=== PATIENT | male | born 1945 | race Caucasian/White ===

== ENCOUNTER 2024-11-22 16:02 | Emergency (ER) | payer MEDICARE, BC ==
[2024-11-22 17:07] LABS: BASOPHILS PERCENT AUTO 0.1 % (0.0-1.0); EOSINOPHILS ABSOLUTE AUTO 0.1 K/mm3 (0.0-0.4); HEMATOCRIT 36.7 % (42.0-52.0); HEMOGLOBIN 12.1 gm/dl (14.0-18.0); IMMATURE GRAN ABSOLUTE AUTO 0.04 K/mm3 (0.00-0.05); IMMATURE GRAN PERCENT AUTO 0.3 % (0.0-0.4); LYMPHOCYTES ABSOLUTE AUTO 0.3 K/mm3 (1.0-4.8); LYMPHOCYTES PERCENT AUTO 2.4 % (24.0-44.0); MEAN CORPUSCULAR HEMOGLOBIN 32.8 pg (28.0-32.0); MEAN CORPUSCULAR VOLUME 99.5 fl (83.0-99.0); MEAN PLATELET VOLUME 8.7 fl (9.4-12.4); MONOCYTES ABSOLUTE AUTO 0.9 K/mm3 (0.0-0.8); MONOCYTES PERCENT AUTO 7.1 % (0.0-8.0); NEUTROPHILS ABSOLUTE AUTO 11.5 K/mm3 (1.8-7.7); NEUTROPHILS PERCENT AUTO 89.1 % (41.0-71.0); PLATELET COUNT,PLT 273 K/mm3 (150-400); RED BLOOD CELL COUNT 3.69 M/mm3 (4.52-5.90); WHITE BLOOD CELL COUNT,WBC 12.94 K/mm3 (3.9-11.3)
[2024-11-22 17:09] LABS: APPEARANCE,URINE SLT CLOUDY (Clear); BILIRUBIN,URINE 1+ (Negative); COLOR,URINE DARK YELLOW (Yellow); GLUCOSE,URINE NEGATIVE (Negative); KETONES,URINE 1+ (Negative); LEUKOCYTE ESTERASE,URINE NEGATIVE (Negative); NITRITE,URINE NEGATIVE (Negative); OCCULT BLOOD,URINE NEGATIVE (Negative); PH,URINE 5.5 (5.0-8.0); PROTEIN,URINE 1+ (Negative); UROBILINOGEN,URINE 0.2 (0.2-1.0)
[2024-11-22 17:28] LABS: A/G RATIO 0.7 (1-2); ALBUMIN 3.2 g/dl (3.4-5.0); ANION GAP 15.6 (5-15); BILIRUBIN TOTAL 0.9 mg/dL (0.2-1.0); BUN/CREATININE RATIO 28.5 (14-18); CALCIUM 8.6 mg/dL (8.5-10.1); CREATININE 1.3 mg/dL (0.7-1.3); EST CRCL DRUG DOSING (CG) 37.85 mL/min; POTASSIUM,K 3.6 mEq/L (3.5-5.1); PROTEIN TOTAL,TP 7.7 g/dl (6.4-8.2)
[2024-11-22 18:01] LABS: BACTERIA,URINE FEW /hpf (FEW); CALCIUM OXALATE CRYSTALS,URINE FEW; MUCUS,URINE FEW /hpf (FEW); RBC,URINE 0-5 /hpf (0-5); SQUAMOUS EPITHELIAL CELLS,UR 0-5 /hpf (0-5); WBC,URINE 0-5 /hpf (0-5)
[2024-11-22] MEDS: Sodium Chloride 0.9% 10 ML Syringe FLUSH ONE (18:32)
[2024-11-22] MEDS: Iopamidol 612 MG/ML 100 ML Bottle IVPUSH ONE (18:32)
[2024-11-22] MEDS: Amoxicillin/Clavulanate K 875-125 MG Tab PO ONE (21:10)
== END 2024-11-22 21:23 | disposition home or self-care (01) ==
LOC: JD.ED 16:02
DX: N40.1 Benign prostatic hyperplasia with lower urinary tract symptoms (principal); R33.8 Other retention of urine; K59.00 Constipation, unspecified; K62.89 Other specified diseases of anus and rectum; Z79.52 Long term (current) use of systemic steroids; Z79.899 Other long term (current) drug therapy
CPT/HCPCS: 36415; 51702; 74018; 74177; 80053; 81001; 85025; 99284; A9270; Q9967

== ENCOUNTER 2024-11-25 19:55 | Emergency (ER) | payer MEDICARE, BC ==
[2024-11-25 21:07] LABS: APPEARANCE,URINE TURBID (Clear); BILIRUBIN,URINE 1+ (Negative); COLOR,URINE RED (Yellow); GLUCOSE,URINE NEGATIVE (Negative); KETONES,URINE TRACE (Negative); LEUKOCYTE ESTERASE,URINE TRACE (Negative); NITRITE,URINE NEGATIVE (Negative); OCCULT BLOOD,URINE 3+ (Negative); PROTEIN,URINE 2+ (Negative)
[2024-11-25] MEDS: Bisacodyl 10 MG Supp RECTAL ONE (21:11)
[2024-11-25 21:26] LABS: EPITHELIAL CELLS,URINE NOT SEEN /hpf (0-5); RBC,URINE TOO NUMEROUS TO CNT /hpf (0-5); WBC,URINE 0-5 /hpf (0-5)
[2024-11-25 21:27] LABS: BACTERIA,URINE FEW /hpf (FEW); MUCUS,URINE NOT SEEN /hpf (FEW)
== END 2024-11-26 00:50 | disposition home or self-care (01) ==
LOC: JD.ED 19:55
DX: R31.9 Hematuria, unspecified (principal); K59.00 Constipation, unspecified; Z87.448 Personal history of other diseases of urinary system; Z79.52 Long term (current) use of systemic steroids; Z79.82 Long term (current) use of aspirin; Z79.899 Other long term (current) drug therapy
CPT/HCPCS: 81001; 87086; 99283; A9270; 99284

== ENCOUNTER 2024-12-07 18:37 | Emergency (ER) | payer MEDICARE, BC | END 2024-12-07 20:50 | disposition home or self-care (01) | LOC: JD.ED 18:37 | DX: R33.9 Retention of urine, unspecified (principal); Z79.82 Long term (current) use of aspirin; Z79.52 Long term (current) use of systemic steroids; Z79.899 Other long term (current) drug therapy | CPT/HCPCS: 51702; 87086; 99283 ==

== ENCOUNTER 2025-01-15 02:17 | Emergency (ER) | payer MEDICARE, BC | END 2025-01-15 02:53 | disposition home or self-care (01) | LOC: JD.ED 02:17 | DX: R33.9 Retention of urine, unspecified (principal); Z96.0 Presence of urogenital implants; Z79.52 Long term (current) use of systemic steroids; Z79.899 Other long term (current) drug therapy | CPT/HCPCS: 51702; 99283; C1758 ==

== ENCOUNTER 2025-01-15 16:36 | Emergency (ER) | payer MEDICARE, BC | END 2025-01-15 18:59 | disposition home or self-care (01) | LOC: JD.ED 16:36 | DX: T83.038A Leakage of other urinary catheter, initial encounter (principal); Z79.82 Long term (current) use of aspirin; Z79.52 Long term (current) use of systemic steroids; Z79.899 Other long term (current) drug therapy | CPT/HCPCS: 51702; 99283 ==

== ENCOUNTER 2025-04-05 07:31 | Emergency (ER) | payer MEDICARE, BC | END 2025-04-05 08:40 | disposition home or self-care (01) | LOC: JD.ED 07:31 | DX: T83.098A Other mechanical complication of other urinary catheter, initial encounter (principal) | CPT/HCPCS: 51702; 99283 ==